=== PATIENT | male | born 1955 | race Caucasian/White ===

== ENCOUNTER → 2020-04-01 11:27 | Outpatient (BNVA) | payer MEDICARE, SELFPAY | PROVIDERS: Visit Provider Anesthesiology | DX: M47.27 Other spondylosis with radiculopathy, lumbosacral region (principal); M51.36 Other intervertebral disc degeneration, lumbar region; G89.4 Chronic pain syndrome | CPT/HCPCS: 99212 ==

== ENCOUNTER 2020-07-09 11:54 | Outpatient (REF) | payer MEDICARE, SELFPAY ==
[2020-07-09 12:07] LABS: COVID-19 Test Positive (Negative)
== END 2020-07-09 11:55 | disposition home or self-care (01) ==
LOC: HO.LAB 11:54
PROVIDERS: Visit Provider Internal Medicine
DX: Z20.822 Contact with and (suspected) exposure to COVID-19 (principal)
CPT/HCPCS: 36415; 87635; C9803

== ENCOUNTER 2021-01-18 09:59 | Emergency (ER) | payer MEDICARE, MEDICAID, SELFPAY ==
--- NOTE | ~2021-01-18 | XR_ITS ---
EXAMINATION: XR FOOT, LEFT CLINICAL INFORMATION: Heel pain COMPARISON: None TECHNIQUE: AP, lateral, and oblique views of the left foot. FINDINGS: There are moderate posterior and smaller plantar calcaneal spurs. The retrocalcaneal recess is preserved. Bony mineralization appears normal. There is no destructive process. The subtalar joint is unremarkable. There is no visible acute or healing fracture or dislocation. There is a hallux valgus of approximately 31 degrees with medial bunion. XR/XR foot LT 2V IMPRESSION: 1. Moderate posterior and smaller plantar calcaneal spurs. 2. Hallux valgus first MTP. Medial bunion.
[2021-01-18 10:16] VITALS: BP 141/91; PULSE 72; RESP 14; TEMP 36.9; O2SAT 97; BMI 39.1
[2021-01-18] MEDS: predniSONE 20 MG TABLET 60 MG PO (11:15)
[2021-01-18] MEDS: oxyCODONE HCl Immed Release 5 MG TABLET PO (11:15)
--- NOTE | 2021-01-18 11:15 | ED.GENADULT ---
HPI - General Adult General Chief complaint: Extremity Problem Stated complaint: Swollen left foot Time Seen by Provider: 01/18/21 10:56 Source: patient Mode of arrival: ambulatory History of Present Illness HPI narrative: Patient presents to the ED for left heel pain couple days. Patient states when he gets up and put his foot on the ground he has left heel pain suddenly. Patient denies any trauma, redness, calf pain, leg swelling, or any foot swelling. Patient states mild swelling in posterior heel. Patient denies any chest pain or shortness of breath. Related Data Previous Rx's Medication Instructions Recorded gabapentin 600 mg tablet 600 mg PO TID 30 Days #90 tab 04/01/20 naproxen 500 mg tablet 500 mg PO BID PRN #20 tab 01/18/21 oxycodone-acetaminophen 5 mg-325 1 tab PO TID PRN #9 tab 01/18/21 mg tablet (Percocet) prednisone 20 mg tablet 60 mg PO DAILY 5 Days #15 tab 01/18/21 Allergies Allergy/AdvReac Type Severity Reaction Status Date / Time No Known Allergies Allergy Verified 04/01/20 11:39 [No Known Allergies*] Review of Systems Review of Systems: Yes all other systems are reviewed and are negative Constitutional: Constitutional: Reports as per HPI and Reports no additional constitutional complaints Eyes: Eyes: Reports as per HPI and Reports no additional eye complaints ENT: Reports system reviewed and no additional complaints, except as documented and Reports as per HPI Cardiovascular: Cardiovascular: Reports as per HPI and Reports no additional cardiovascular complaints Respiratory: Respiratory: Reports as per HPI and Reports no additional respiratory complaints Gastrointestinal: Gastrointestinal: Reports as per HPI and Reports no additional gastrointestinal complaints Genitourinary: Genitourinary: Reports no additional male genitourinary complaints and Reports as per HPI Musculoskeletal: Musculoskeletal: Reports no additional musculoskeletal complaints and Reports as per HPI Comments: Left heel pain Integumentary/Breasts: Skin/Breast: Reports system reviewed and no additional complaints, except as docu and Reports as per HPI Neurologic: Reports system reviewed and no additional complaints, except as documented and Reports as per HPI Psychiatric: Psychiatric: Reports no additional psychiatric complaints and Reports as per HPI [facility] Past Medical History Medical History (Updated 01/18/21 @ 12:25 by LYRIC Gifford) Chronic pain syndrome Disc degeneration, lumbar Spondylosis of lumbosacral spine with radiculopathy Social History Social History Advance Directives: Yes Advance Directives Information Provided: Yes Advance Directives on File: No Physical Exam Vital Signs: Vital Signs: Last Vital Signs Temp 98.4 F 01/18/21 10:16 Pulse 72 01/18/21 10:16 Resp 18 01/18/21 12:05 BP 141/91 H 01/18/21 10:16 Pulse Ox 97 01/18/21 10:16 Body Mass Index 39.1 Const: General: cooperative, healthy appearing, comfortable, no acute distress, well developed, alert, awake and Physically active Orientation/consciousness: patient oriented x3 HENMT: Head: Yes normal to inspection, Yes No palpable skull fracture present, Yes normocephalic, Yes atraumatic and No abrasion Eyes: General: appearance normal, both eyes and all related structures Neck: Neck: Yes normal visual inspection, Yes full ROM, Yes no lymphadenopathy, Yes no meningeal signs, Yes trachea midline, Yes supple and No tender Chest: Chest palpation & inspection: normal inspection of the chest and normal palpation of entire chest wall Resp: Effort & Inspection: normal respiratory effort and able to speak in complete sentences Cardio: Jugular venous distension: no JVD Heart sounds: S1 normal heart sound present and S2 normal heart sound present GI: Inspection: Yes normal to inspection and No abdominal wall ecchymosis Palpation (GI): Soft to palpation, not firm, nontender, no guarding and not rigid : General: No CVA tenderness and Yes no CVA tenderness Back/Spine/Pelvis: Back: no CVA tenderness, No CVA tenderness and No back tenderness Skin: General skin exam: no rashes or lesions noted and elasticity normal Neuro: General: patient oriented x3, gait normal, no meningeal signs and CN's II-XI intact bilaterally Cranial nerves: Yes CN's II-XII intact bilaterally Extrem: General: Yes normal to inspection and Yes full ROM Ankle/foot/toe images: 1. Tenderness on palpation. Negative for any redness, fluctuance, open wounds, ulcer, pulse discharge, foul odor, or deformity. Pedal pulses intact. Motor/neuro/vascular exam intact. 2. Posterior heel tender for palpation. Negative for any redness, fluctuance go open wound, ulcer, post discharge, foul odor, deformity. Pedal pulse intact. Motor/neuro/vascular exam intact. Leg/calf negative for any redness, swelling, ecchymosis, deformity. Rest of lower extremity normal Course Course Course Narrative: Patient given pain medication and will have left foot x-ray ordered. Reevaluation(s) Reevaluation #1: Foot x-ray negative for fracture. For x-ray positive for posterior and calcaneal heel spur. Patient will be discharged with pain meds Time: 12:24 Medical Decision Making MDM Narrative Medical decision making narrative: Heel spur Discharge Plan Discharge Clinical Impression: Heel spur Patient Disposition: Home, Self-Care Instructions: Heel Spur (ED) Additional Instructions: Lucia radiograf?a result? positiva para el espol?n calc?clemente posterior del brigid?n que est? causando lucia dolor. Monika X negativos por fractura. Aimee un seguimiento con lucia proveedor de atenci?n primaria. Regrese inmediatamente al servicio de urgencias si tiene enrojecimiento, hinchaz?n, heridas abiertas, secreci?n de pus, mal olor, fiebre, escalofr?os, vetas dubois, hinchaz?n de las piernas, dolor en la pantorrilla, decoloraci?n susanna azulada de las extremidades inferiores, frialdad, calor o cualquier otro s?ntoma que le preocupe. Prescriptions: New naproxen 500 mg tablet 500 mg PO BID PRN (Reason: pain) Qty: 20 RF: 0 prednisone 20 mg tablet 60 mg PO DAILY 5 Days Qty: 15 RF: 0 oxycodone-acetaminophen [Percocet] 5-325 mg tablet 1 tab PO TID PRN (Reason: pain) Qty: 9 RF: 0 No Action gabapentin 600 mg tablet 600 mg PO TID 30 Days Qty: 90 RF: 12 Interventions: ED Discharge Assessment Last Done: 01/18/21 12:40 Discharge Date/Time: 01/18/21 12:40 Print Language: Maltese
[2021-01-18 12:05] VITALS: RESP 18
== END 2021-01-18 12:40 | disposition home or self-care (01) ==
PROVIDERS: Emergency Provider Emergency Medicine; PCP Internal Medicine
DX: M77.32 Calcaneal spur, left foot (principal)
CPT/HCPCS: 73620; 99283; 99284